=== PATIENT | male | born 1990 | race Caucasian/White ===

== ENCOUNTER 2017-01-28 15:35 | Emergency (ER) | payer OTHER ==
[~2017-01-28] VITALS: Ht 175.3 cm; Wt 63.5 kg
[2017-01-28 16:19] LABS: BASO % 1 % (0-3); EOS % 1 % (0-3); HEMATOCRIT 45.8 % (39.0-53.0); HEMOGLOBIN 16.2 g/dL (13.0-17.5); LYMPH # 1.4 x10^3/uL (1.0-4.8); LYMPH % 24 % (24-48); MEAN CORPUSCULAR HEMOGLOBIN 31 pg (25-35); MEAN CORPUSCULAR HGB CONC 35 g/dL (31-37); MEAN CORPUSCULAR VOLUME 87 fL (79-100); MONO % 6 % (0-9); NEUT % 68 % (31-73); PLATELET COUNT 195 x10^3/uL (140-400); RED BLOOD COUNT 5.28 x10^6/uL (4.30-5.70); RED CELL DISTRIBUTION WIDTH 12.4 % (11.5-14.5); WHITE BLOOD COUNT 5.7 x10^3/uL (4.0-11.0)
[2017-01-28 16:33] LABS: CALCIUM 9.1 mg/dL (8.5-10.1); GFR 90.3; POTASSIUM 4.1 mmol/L (3.5-5.1)
[2017-01-28 16:39] LABS: ALBUMIN 4.1 g/dL (3.4-5.0); ALBUMIN/GLOBULIN RATIO 1.2 (1.0-1.7); TOTAL BILIRUBIN 0.6 mg/dL (0.2-1.0); TOTAL PROTEIN 7.5 g/dL (6.4-8.2)
[2017-01-28 17:13] VITALS: BP 119/61
--- NOTE | 2017-01-28 17:18 | PHYS DOC ---
Past Medical History Past Medical History: Anxiety, Other Additional Past Medical Histor: essential tremors Past Surgical History: Other Additional Past Surgical Histo: wisdom teeth Alcohol Use: Rarely Drug Use: None Adult General Chief Complaint Chief Complaint: Palpitations HPI HPI Patient is a 27 year old male who comes to the ED from [facility] where he works, with a complaint of palpitations. He was sent in from the nurse's office at [facility] for evaluation. Patient states on Thursday, 5:15, he had a few episodes of what he describes as "a flutter". He was slightly bothered by it but it seemed to go away. He had a few more episodes today while seated at his desk so he went to the nurse's office to be checked out. Patient states he was feeling fine. He was seated at his desk working when he had intermittent episodes lasting about 3 seconds each where he felt that his heart was beating fast. These episodes would come and go. He had no pain or shortness of breath with the episodes. Prior to Thursday, he does not recall having any of these episodes before. The patient does have a history of anxiety. He's been prescribed benzos in the past and also in the past was on a SSRI for anxiety. It did help but he seemed to feel better so he stopped taking it and has been off of it for at least 6 months. He has not had as much problem with anxiety over the past 6 months. He did have a stressful weekend related to family issues but that has also improved. He denies any significant intake of caffeine, in fact for the last 2 days he's had no caffeine at all. He does not smoke cigarettes or anything else. He has not had other intake of other stimulants. He was not healing particularly anxious before or during these episodes of "fluttering". His mother does have [id number], no other family members to his knowledge. Patient denies any history of any heart or lung problems or any other medical problems. 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 Review of Systems Review of Systems Constitutional: Denies fever or chills [] Eyes: Denies change in visual acuity, redness, or eye pain [] HENT: Denies nasal congestion or sore throat [] Respiratory: Denies cough or shortness of breath [] Cardiovascular: As in history of present illness GI: Denies abdominal pain, nausea, vomiting, bloody stools or diarrhea [] : Denies dysuria or hematuria [] Musculoskeletal: Denies back pain or joint pain [] Integument: Denies rash or skin lesions [] Neurologic: Denies headache, focal weakness or sensory changes [] Allergies Allergies Allergies Coded Allergies Type Severity Reaction Last Updated Verified No Known Drug Allergies 01/28/17 No Physical Exam Physical Exam Constitutional: Well developed, well nourished, no acute distress, non-toxic appearance. Alert, mentating normally, vital signs, pulse ox, ECG tracing on the monitor all normal HENT: Normocephalic, atraumatic, bilateral external ears normal, nose normal. [ ] Eyes: conjunctiva normal, no discharge. [] Neck: Normal range of motion, no stridor. [] Cardiovascular:Heart rate regular rhythm, no murmur [] Lungs & Thorax: Bilateral breath sounds clear to auscultation [] Abdomen: Bowel sounds normal, soft, no tenderness, no masses, no pulsatile masses. [] Skin: Warm, dry, no erythema, no rash. [] Extremities: No tenderness, no cyanosis, no clubbing, ROM intact, no edema. [] Neurologic: Alert and oriented X 3, normal motor function, normal sensory function, no focal deficits noted. [] Current Patient Data Vital Signs Vital Signs Date Time Temp Pulse Resp B/P (MAP) Pulse Ox O2 Delivery O2 Flow Rate FiO2 01/28/17 15:50 98.0 85 20 142/85 (104) 99 Room Air 98.0 Lab Values Laboratory Tests Test 01/28/17 16:11 White Blood Count 5.7 x10^3/uL (4.0-11.0) Red Blood Count 5.28 x10^6/uL (4.30-5.70) Hemoglobin 16.2 g/dL (13.0-17.5) Hematocrit 45.8 % (39.0-53.0) Mean Corpuscular Volume 87 fL (79-100) Mean Corpuscular Hemoglobin 31 pg (25-35) Mean Corpuscular Hemoglobin Concent 35 g/dL (31-37) Red Cell Distribution Width 12.4 % (11.5-14.5) Platelet Count 195 x10^3/uL (140-400) Neutrophils (%) (Auto) 68 % (31-73) Lymphocytes (%) (Auto) 24 % (24-48) Monocytes (%) (Auto) 6 % (0-9) Eosinophils (%) (Auto) 1 % (0-3) Basophils (%) (Auto) 1 % (0-3) Neutrophils # (Auto) 3.9 x10^3uL (1.8-7.7) Lymphocytes # (Auto) 1.4 x10^3/uL (1.0-4.8) Monocytes # (Auto) 0.3 x10^3/uL (0.0-1.1) Eosinophils # (Auto) 0.1 x10^3/uL (0.0-0.7) Basophils # (Auto) 0.0 x10^3/uL (0.0-0.2) Sodium Level 141 mmol/L (136-145) Potassium Level 4.1 mmol/L (3.5-5.1) Chloride Level 104 mmol/L (98-107) Carbon Dioxide Level 28 mmol/L (21-32) Anion Gap 9 (6-14) Blood Urea Nitrogen 17 mg/dL (8-26) Creatinine 1.0 mg/dL (0.7-1.3) Estimated GFR (Cockcroft-Gault) 90.3 BUN/Creatinine Ratio 17 (6-20) Glucose Level 135 mg/dL (70-99) H Calcium Level 9.1 mg/dL (8.5-10.1) Total Bilirubin 0.6 mg/dL (0.2-1.0) Aspartate Amino Transferase (AST) 18 U/L (15-37) Alanine Aminotransferase (ALT) 29 U/L (16-63) Alkaline Phosphatase 51 U/L (46-116) Total Protein 7.5 g/dL (6.4-8.2) Albumin 4.1 g/dL (3.4-5.0) Albumin/Globulin Ratio 1.2 (1.0-1.7) Laboratory Tests 01/28/17 16:11 Laboratory Tests 01/28/17 16:11 EKG EKG 12-lead EKG read by me. Sinus rhythm. Heart rate 91. There are no acute ST or T wave changes indicative of ischemia or infarction. There is no premature atrial or ventricular contraction. There is no rhythm disturbance. There is no evidence of WPW. No STEMI. Normal EKG. [id number] Prehospital 12-lead EKG faxed from the [facility] nurse's office. Date 01/28/17, read by me. Sinus rhythm. Heart rate 59. Early repolarization pattern. There are no acute ST or T wave changes indicative of ischemia or infarction. No rhythm disturbance. No evidence of WPW. No STEMI. Normal EKG [] Radiology/Procedures Radiology/Procedures [] Course & Med Decision Making Course & Med Decision Making Pertinent Labs and Imaging studies reviewed. (See chart for details) 27-year-old male has had some very brief episodes of what he terms "flutter" of the heart , EKG at [facility] and one at here are both normal, we will check labs, he is agreeable to that plan. Patient's labs are unremarkable. I reassured him and also discussed if episodes continue he may follow-up with cardiology and have a Holter monitor or event monitor placed. [] Dragon Disclaimer Dragon Disclaimer This electronic medical record was generated, in whole or in part, using a voice recognition dictation system. Departure Departure Impression: Primary Impression: Intermittent palpitations Disposition: 01 HOME, SELF-CARE Condition: STABLE Referrals: UNKNOWN PCP NAME (PCP) Patient Instructions: Palpitations, [id number] Additional Instructions: If you continue to have symptoms, be sure you are not taking any type of stimulants such as any type of caffeine, cold medicine, or other substance or food that could be containing stimulants. Make sure you are drinking plenty of fluid and her well-hydrated. If you are continuing to have symptoms, you may wish to follow up with cardiology and wear a monitor which might be able to help identify the cause of your palpitations. At this time, there is no evidence of anything serious causing them. CHRISTIANO AMBROSE MD January 28, 2017 17:18
--- NOTE | 2017-01-29 06:09 | EKG ---
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
== END 2017-01-28 17:33 | disposition home or self-care (01) ==
LOC: ER 15:35
DX: R00.2 Palpitations (principal); F41.9 Anxiety disorder, unspecified
CPT/HCPCS: 36415; 80053; 85027; 93005; 99285-25